=== PATIENT | male | born 1975 | race Two or more races ===

== ENCOUNTER 2024-05-22 10:29 | Inpatient (IN) | payer OTHER ==
[~2024-05-22] VITALS: Ht 188 cm; Wt 104.3 kg
[2024-05-22] MEDS ORDERED: AVAPRO75 MG PO (10:49)
[2024-05-22] MEDS ORDERED: 0.9 % SODIUM CHLORIDE 1,000 ML IV STA (11:29)
[2024-05-22] MEDS ORDERED: MEPERIDINE HCL/PF 25 MG/ML VIAL IV ONE (11:30)
[2024-05-22 12:18] LABS: HEMATOCRIT 38.1 % (39.0-48.0); HEMOGLOBIN 13.3 g/dL (13-16.00); MEAN CELL VOLUME 87.3 fL (80.0-100.00); MEAN CORPUSCULAR HEMOGLOBIN 30.4 pg (27.00-32.0); MEAN CORPUSCULAR HGB CONC 34.8 g/dl (32.0-36.0); RED BLOOD COUNT 4.36 M/uL (4.00-6.00); RED CELL DISTRIBUTION WIDTH 12.9 % (11.5-14.5)
[2024-05-22 12:50] LABS: CALCIUM 8.8 mg/dL (8.5-10.1); CREATININE SERUM 1.35 mg/dL (0.70-1.30); GFR 56.65; POTASSIUM 3.95 mEq/L (3.5-5.1)
[2024-05-22 12:51] LABS: PH,URINE 5.5 (5.0-8.0); URINE APPEARANCE Clear; URINE BILIRRUBIN Negative (NEGATIVE); URINE BLOOD Negative; URINE COLOR Dark Yellow; URINE GLUCOSE Negative (NEGATIVE); URINE KETONE Trace (NEGATIVE); URINE LEUKOCYTE Negative; URINE NITRATE Negative
[2024-05-22 12:52] LABS: PLATELET COUNT 79 K/uL (150-450)
[2024-05-22 12:54] LABS: URINE BACTERIA 36.5 uL (0.0-1933); URINE EPITHELIAL CELLS 25.6 uL (0.0-38.8); URINE RBC 11.1 uL (0.0-20.8)
[2024-05-22 13:18] LABS: URINE CAST 0.15 uL (0.0-1.40); URINE PROTEIN 100 (NEGATIVE)
[2024-05-22] MEDS ORDERED: FAMOTIDINE/PF 20 MG/2 ML VIAL IV SCH (17:42)
[2024-05-22] MEDS ORDERED: DEXAMETHASONE SODIUM PHOSP/PF 10 MG/ML VIAL IV SCH (17:44)
[2024-05-22] MEDS ORDERED: ONDANSETRON HCL 2 MG/ML VIAL IV PRN (17:45)
[2024-05-22] MEDS ORDERED: FAMOTIDINE/PF 20 MG/2 ML VIAL ONE (18:24)
[2024-05-22] MEDS ORDERED: DEXAMETHASONE SODIUM PHOSPHATE 4 MG/ML VIAL ONE (18:24)
[2024-05-22] MEDS ORDERED: MORPHINE SULFATE 2 MG/ML CARTRIDGE IV PRN (18:30)
[2024-05-22 19:28] LABS: INR 1.07; PARTIAL THROMBOPLASTIN TIME 32.2 SECONDS (22.0-34.0); PROTHROMBIN TIME 11.2 SECONDS (9.0-11.5)
[2024-05-22 19:31] LABS: ALBUMIN 3.5 gm/dL (3.4-5.0); BILIRUBIN TOTAL 0.84 mg/dL (0.3-1.2); BILIRUBIN,CONJUGATED 0.21 mg/dL (0.0-0.2); BILIRUBIN,UNCONJUGATED 0.63 mg/dL (0.0-0.6); TOTAL PROTEIN 6.9 gm/dL (6.4-8.2)
[2024-05-23 07:08] LABS: HEMATOCRIT 40.3 % (39.0-48.0); HEMOGLOBIN 14.2 g/dL (13-16.00); MEAN CELL VOLUME 87.4 fL (80.0-100.00); MEAN CORPUSCULAR HEMOGLOBIN 30.8 pg (27.00-32.0); MEAN CORPUSCULAR HGB CONC 35.2 g/dl (32.0-36.0); RED BLOOD COUNT 4.61 M/uL (4.00-6.00); RED CELL DISTRIBUTION WIDTH 13.1 % (11.5-14.5)
[2024-05-23 07:16] LABS: ALBUMIN 3.4 gm/dL (3.4-5.0); BILIRUBIN TOTAL 0.93 mg/dL (0.3-1.2); CALCIUM 8.2 mg/dL (8.5-10.1); CREATININE SERUM 1.27 mg/dL (0.70-1.30); GFR 60.79; GLOBULINA 3.2 G/DL (2.4-3.5); POTASSIUM 4.64 mEq/L (3.5-5.1); TOTAL PROTEIN 6.6 gm/dL (6.4-8.2)
[2024-05-23 07:59] LABS: PLATELET COUNT 74 K/uL (150-450)
[2024-05-23] MEDS ORDERED: METHYLPREDNISOLONE SOD SUCC 40 MG VIAL IV SCH (09:00)
[2024-05-23] MEDS ORDERED: ACETAMINOPHEN 325 MG TABLET PO PRN (15:45)
[2024-05-24 07:51] LABS: HEMATOCRIT 41.3 % (39.0-48.0); HEMOGLOBIN 14.7 g/dL (13-16.00); MEAN CELL VOLUME 87.8 fL (80.0-100.00); MEAN CORPUSCULAR HEMOGLOBIN 31.3 pg (27.00-32.0); MEAN CORPUSCULAR HGB CONC 35.6 g/dl (32.0-36.0); RED CELL DISTRIBUTION WIDTH 13.3 % (11.5-14.5)
[2024-05-24 10:01] LABS: PLATELET COUNT 106 K/uL (150-450)
[2024-05-24 11:19] LABS: PLT IN CITRATE 79 K/uL (150-450)
== END 2024-05-24 11:28 | disposition home or self-care (01) | DRG 866 ==
LOC: ER 10:31 → MEDJ 18:27
PROVIDERS: Emergency Medicine; Internal Medicine; Student in an Organized Health Care Education/Training Program; ADMIT Internal Medicine; ATTEND Internal Medicine
PROC: BW40ZZZ Ultrasonography of Abdomen (ICD-10-PCS; principal; 2024-05-22)
DX: A90 Dengue fever [classical dengue] (principal); D72.818 Other decreased white blood cell count; I10 Essential (primary) hypertension